=== PATIENT | female | born 1945 | race Caucasian/White ===

== ENCOUNTER 2022-08-19 07:43 | Inpatient (IN) | payer OTHER ==
[~2022-08-19] VITALS: Ht 170.2 cm; Wt 108.0 kg
[2022-08-19] MEDS ORDERED: NACL 0.9% 1,000 ML IV ONE (08:15)
--- NOTE | 2022-08-19 08:15 | NUR ---
This is a 76-year-old female with history of multiple medical problems including hypertension, CHF, atrial fibrillation, COPD brought in by paramedics from her private home who called 911 after she states she became weak and laid herself on the floor while ambulating to the bathroom after waking up this morning prior to arrival. The patient reports that she has been ill with flulike illness for the past several days characterized by a slight cough, nasal congestion, sore throat, malaise, nonbloody diarrhea without abdominal pain chest pain or shortness of breath. There has been no fever/chills or night sweats. When paramedics arrived, patient was found lethargic but awake and answering questions appropriately. When the patient was assisted to her feet patient became pale, hypotensive, tachycardic then lost consciousness for less than 1 minute with no report of seizure or focal deficit. Blood glucose was 124
--- NOTE | 2022-08-19 08:20 | NUR ---
PETER Self at bedside examining patient.
[2022-08-19 08:34] LABS: BASOPHILS % (AUTO) 0.3 % (0.0-2.0); HEMATOCRIT 41.8 % (36-48); HEMOGLOBIN 13.8 g/dL (12.0-16.0); LYMPHOCYTES # (AUTO) 0.8 K/uL (1.0-5.5); LYMPHOCYTES % (AUTO) 11.7 % (20.5-51.5); MEAN CORPUSCULAR HEMOGLOBIN 30 pg (27-31); MEAN CORPUSCULAR HGB CONC 33 % (32-36); MEAN CORPUSCULAR VOLUME 90 fL (79.0-98.0); MONOCYTES # (AUTO) 0.7 K/uL (0.0-1.0); MONOCYTES % (AUTO) 10.2 % (1.7-9.3); NEUTROPHILS # (AUTO) 5.4 K/uL (1.8-7.7); NEUTROPHILS % (AUTO) 77.8 % (40.0-70.0); PLATELET COUNT (AUTO) 306 K/uL (130-430); RED BLOOD CELL COUNT(AUTO) 4.64 MIL/uL (4.2-6.2); RED CELL DISTRIBUTION WIDTH 14.6 % (9.0-15.0)
--- NOTE | 2022-08-19 08:40 | NUR ---
PT TO RADIOLOGY VIA [facility].
[2022-08-19 08:50] LABS: INR 1.1 (0.8-1.2); PROTHROMBIN TIME 11.3 SECS (9.5-12.5)
--- NOTE | 2022-08-19 08:50 | NUR ---
Medicated per MD orders. IVF infusing with no s/s of infiltration at this time. Will cont to monitor
--- NOTE | 2022-08-19 08:53 | NUR ---
EKG COMPLETE BY EMT STRIP GIVEN TO MD GARCIAS.
[2022-08-19 08:56] LABS: ANION GAP 9 (5-15); CHLORIDE 101 mmol/L (98-107); CREATININE 1.16 mg/dL (0.55-1.30); GLUCOSE 152 mg/dL (70-99); UREA NITROGEN, BLOOD 11 mg/dL (8-21)
[2022-08-19 09:04] LABS: ALANINE AMINOTRANSFERASE 14 U/L (12-78); ALBUMIN 3.4 g/dL (3.4-4.8); ASPARTATE AMINOTRANSFERASE 22 U/L (10-37); TOTAL BILIRUBIN 0.6 mg/dL (0.0-1.0)
--- NOTE | 2022-08-19 09:06 | NUR ---
SPECIMEN COLLECTED FROM BILATERAL NARES SENT TO LAB BY PATY HERNANDEZ FOR ANALYSIS
[2022-08-19 09:11] LABS: ACETAMINOPHEN < 1 ug/mL (1-30); ALCOHOL, BLOOD < 3 mg/dL (<10)
--- NOTE | 2022-08-19 09:12 | NUR ---
Critical lab value call ronnie Guardado, lab Potassium 2.6 made aware
[2022-08-19] MEDS ORDERED: KCL 20 mEq in NS 1000 mL 1,000 ML IV ONE (09:45)
[2022-08-19] MEDS ORDERED: POTASSIUM CHLORIDE 20 MEQ/PKT PACKET PO ONE (09:45)
--- NOTE | 2022-08-19 11:49 | NUR ---
NASAL SPECIMEN COLLECTED VIA BILATERAL NARES, URINE COLLECTED SENT TO LAB.
--- NOTE | 2022-08-19 11:56 | NUR ---
Admit bed requested Patient will be admitted to care of . Admitted to TELE unit. Diagnosis GASTROENTERITIS Inpatient (Yes or No) Y Observation (Yes or No) N Orientation concerns or request close to nursing station (Yes or No) N Covid Status NEG On vent or bipap N Isolation requirements N Needs a sitter N From Home (Yes or if No enter name of facility) HOME Requires Dialysis (Yes or No) N Med Rec Completed (Yes of No) Y
--- NOTE | 2022-08-19 11:58 | NUR ---
Juancho hui in ED - 08/19/22 at 1900 by SDNURRAFAEL PT NOTIFIED NPO IN PREPARATION FOR SURGERY WITH MD JUAREZ AFTER SCHEDULE COMPLETION OF THE DAY.
[2022-08-19] MEDS ORDERED: DOCUSATE SODIUM 100 MG CAPSULE PO PRN (12:00)
[2022-08-19] MEDS ORDERED: LORazepam 2 MG/ML VIAL IVP PRN (12:00)
[2022-08-19] MEDS ORDERED: ONDANSETRON HCL 4 MG/2 ML VIAL IVP PRN (12:00)
[2022-08-19] MEDS ORDERED: MAGNESIUM SULFATE 50 ML IV PRN (12:00)
[2022-08-19] MEDS ORDERED: MORPHINE 2 MG/ML INJ. SYRINGE IVP PRN ×2 (12:00)
[2022-08-19] MEDS ORDERED: MUPIROCIN 2% TOPICAL OINTMENT 22 GM NS PRN (12:00)
[2022-08-19] MEDS ORDERED: ACETAMINOPHEN 325 MG TABLET PO PRN (12:00)
[2022-08-19] MEDS ORDERED: DEXTROSE 50% JECT 50 ML DISP.SYRIN IVP PRN (12:15)
[2022-08-19] MEDS ORDERED: INSULIN LISPRO SLIDING SCALE 100 UNITS/ML, 3 ML VIAL (humaLOG) SUBCUT PRN (12:15)
[2022-08-19] MEDS ORDERED: ALBUTEROL MDI INHALATION 8 GM INH INH PRN (12:15)
[2022-08-19 12:26] LABS: BARBITURATE, URINE NEGATIVE (NEG <=200); BENZODIAZEPINE, URINE NEGATIVE (NEG <=150); CANNABINOID, URINE NEGATIVE (NEG <=50); COCAINE, URINE NEGATIVE (NEG <=150); METHAMPHETAMINES SCREEN,URINE NEGATIVE (NEG <=500); OPIATE, URINE NEGATIVE (NEG <=100); PHENCYCLIDINE SCREEN,URINE NEGATIVE (NEG <=25); UR TRICYCLIC ANTIDEPRESSANTS NEGATIVE (NEG <=300); URINE AMPHETAMINE NEGATIVE (NEG <=500); URINE METHADONE NEGATIVE (NEG <=200); URINE OXYCODONE SCREEN NEGATIVE (NEG <=100); URINE PROPOXYPHENE SCREEN NEGATIVE (NEG <=300)
--- NOTE | 2022-08-19 12:30 | NUR ---
COVID POSITIVE CRITICAL RESULT. CALLED IN PER DEMETRIUS IN LAB.
--- NOTE | 2022-08-19 14:21 | NUR ---
ACCUCHECK BLOODSUGAR 95
[2022-08-19] MEDS ORDERED: PANT40GR PO (19:04)
[2022-08-19] MEDS ORDERED: GABA300T25 PO (19:04)
[2022-08-19] MEDS ORDERED: BUDE3CAP11 PO (19:04)
[2022-08-19] MEDS ORDERED: MONT10TA22 PO (19:04)
[2022-08-19] MEDS ORDERED: CARV20CP7 PO (19:04)
[2022-08-19] MEDS ORDERED: RIVA20TA PO (19:04)
--- NOTE | 2022-08-19 19:27 | NUR ---
REPORT GIVEN TO DORON PALACIOS.
--- NOTE | 2022-08-19 19:40 | NUR ---
Report received from PHYLLIS Beck; assuming care of patient at this time.
--- NOTE | 2022-08-19 19:45 | NUR ---
Patient A/Ox4, VSS, resp even and unlabored. Patient lying in bed with safety precautions in place. Nad noted at this time.
--- NOTE | 2022-08-19 21:20 | NUR ---
Patient will be admitted to [facility]. Admitted to Tele unit. Will go to room 126 B. Belongings list completed. Complete and up to date summary report printed. SBAR report given to DORON Iglesias at bedside with opportunity for questions.
[2022-08-19 23:01] VITALS: BP_SYST 163
[2022-08-20] VITALS: BP_SYST 163
--- NOTE | 2022-08-20 05:17 | NUR ---
CONSULTATION PAGED/CALLED Reason for Consultation: CHF Person Who was Notified: ROMEO Consulting Physician: VIVI Job Training Specialist Specialty: CARDIO Ordering Physician: BROWN
--- NOTE | 2022-08-20 06:48 | NUR ---
Patient in bed resting, denied all pain, tolerated medication well, VSS, c/o nausea prn med given. Patient with generalized stratches (abrasion like) areas. Patient stated that they were from mosquito bites and she scratched them other james no other noted skin issues.
[2022-08-20 06:54] LABS: ANION GAP 11 (5-15); CALCIUM 7.6 mg/dL (8.4-11.0); CHLORIDE 103 mmol/L (98-107); CREATININE 0.85 mg/dL (0.55-1.30); GLUCOSE 104 mg/dL (70-99)
[2022-08-20 07:04] LABS: UREA NITROGEN, BLOOD 9 mg/dL (8-21)
[2022-08-20 07:52] LABS: BASOPHILS % (AUTO) 0.3 % (0.0-2.0); HEMOGLOBIN 12.9 g/dL (12.0-16.0); LYMPHOCYTES # (AUTO) 0.8 K/uL (1.0-5.5); LYMPHOCYTES % (AUTO) 10.6 % (20.5-51.5); MEAN CORPUSCULAR HEMOGLOBIN 31 pg (27-31); MEAN CORPUSCULAR HGB CONC 34 % (32-36); MEAN CORPUSCULAR VOLUME 90 fL (79.0-98.0); MONOCYTES # (AUTO) 0.7 K/uL (0.0-1.0); NEUTROPHILS % (AUTO) 80.1 % (40.0-70.0); PLATELET COUNT (AUTO) 275 K/uL (130-430); RED BLOOD CELL COUNT(AUTO) 4.23 MIL/uL (4.2-6.2); RED CELL DISTRIBUTION WIDTH 14.6 % (9.0-15.0); WHITE BLOOD COUNT (AUTO) 7.5 K/uL (4.8-10.8)
[2022-08-20 08:00] VITALS: BP_SYST 154
[2022-08-20] MEDS ORDERED: FUROSEMIDE 40 MG/4 ML VIAL IVP SCH (09:00)
[2022-08-20] MEDS: ASPIRIN 81 MG TAB.CHEW PO SCH (09:37)
[2022-08-20] MEDS: ASCORBIC ACID 500 MG TABLET PO SCH (09:37)
[2022-08-20] MEDS: GABAPENTIN 300 MG CAPSULE PO SCH (09:37)
[2022-08-20] MEDS: CARVEDILOL 6.25 MG TABLET (COREG) PO SCH ×2 (09:38→20:22)
[2022-08-20] MEDS: DEXAMETHASONE SOD PHOSPHATE 10 MG/ML VIAL IVP SCH (09:39)
--- NOTE | 2022-08-20 09:46 | NUR ---
CONSULTATION PAGED/CALLED Reason for Consultation: [] covid Person Who was Notified: [] JAMAR Consulting Physician: [] DR CHASE Tile Installer Specialty: [] PULMO Ordering Physician: [] DR DASILVA
[2022-08-20] MEDS ORDERED: MONTELUKAST 10 MG TABLET PO ONE (10:15)
[2022-08-20 11:26] VITALS: BP_SYST 144; BP_SYST 157
[2022-08-20] MEDS: POTASSIUM CHLORIDE 20 MEQ TAB.PRT.SR PO PRN (16:18)
[2022-08-20 17:23] VITALS: BP_SYST 170
[2022-08-20] MEDS: hydrALAZINE HCL 20 MG/ML VIAL IVP PRN (17:58)
[2022-08-20] MEDS: RIVAROXABAN 10 MG TABLET PO SCH (18:04)
--- NOTE | 2022-08-20 19:30 | NUR ---
Pt. in bed, aaox4, vss, denies pain. Isolation in place due to Covid positive. Call light in reach, start of Remdisivir.
[2022-08-20 22:12] VITALS: BP_SYST 165
[2022-08-21 00:37] VITALS: BP_SYST 152
[2022-08-21 02:02] VITALS: BP_SYST 119
[2022-08-21] MEDS: hydrALAZINE HCL 20 MG/ML VIAL IVP PRN (04:14)
[2022-08-21 04:34] VITALS: BP_SYST 166
--- NOTE | 2022-08-21 06:27 | NUR ---
Pt. needs met this shift, vss, isolation in place, no acute symptoms of Covid. Pox wnl, thierno care done prn. Resting quietly, call light in reach
[2022-08-21 06:46] LABS: BASOPHILS % (AUTO) 0.2 % (0.0-2.0); HEMATOCRIT 40.3 % (36-48); HEMOGLOBIN 13.5 g/dL (12.0-16.0); LYMPHOCYTES # (AUTO) 0.7 K/uL (1.0-5.5); LYMPHOCYTES % (AUTO) 9.6 % (20.5-51.5); MEAN CORPUSCULAR HEMOGLOBIN 30 pg (27-31); MEAN CORPUSCULAR HGB CONC 34 % (32-36); MEAN CORPUSCULAR VOLUME 89 fL (79.0-98.0); MONOCYTES # (AUTO) 0.6 K/uL (0.0-1.0); MONOCYTES % (AUTO) 8.5 % (1.7-9.3); NEUTROPHILS # (AUTO) 6.1 K/uL (1.8-7.7); NEUTROPHILS % (AUTO) 81.7 % (40.0-70.0); PLATELET COUNT (AUTO) 341 K/uL (130-430); RED BLOOD CELL COUNT(AUTO) 4.55 MIL/uL (4.2-6.2); RED CELL DISTRIBUTION WIDTH 14.6 % (9.0-15.0); WHITE BLOOD COUNT (AUTO) 7.5 K/uL (4.8-10.8)
[2022-08-21 07:02] LABS: ALANINE AMINOTRANSFERASE 16 U/L (12-78); ALBUMIN 3.2 g/dL (3.4-4.8); ANION GAP 12 (5-15); ASPARTATE AMINOTRANSFERASE 26 U/L (10-37); CALCIUM 8.5 mg/dL (8.4-11.0); CHLORIDE 103 mmol/L (98-107); CREATININE 0.87 mg/dL (0.55-1.30); GLUCOSE 119 mg/dL (70-99); TOTAL BILIRUBIN 0.6 mg/dL (0.0-1.0); UREA NITROGEN, BLOOD 10 mg/dL (8-21)
--- NOTE | 2022-08-21 07:15 | NUR ---
opening note Received SBAR from night RN. Patient in bed, respirations even, non labored,bed in low and locked position, call light within keisha
[2022-08-21 08:00] VITALS: BP_SYST 137
[2022-08-21] MEDS: GABAPENTIN 300 MG CAPSULE PO SCH ×2 (08:27→20:28)
[2022-08-21] MEDS: ASCORBIC ACID 500 MG TABLET PO SCH (08:27)
[2022-08-21] MEDS: ASPIRIN 81 MG TAB.CHEW PO SCH (08:27)
[2022-08-21] MEDS: MONTELUKAST 10 MG TABLET PO SCH (08:27)
[2022-08-21] MEDS: POTASSIUM CHLORIDE 20 MEQ TAB.PRT.SR PO PRN (08:29)
[2022-08-21] MEDS: CARVEDILOL 6.25 MG TABLET (COREG) PO SCH (08:30)
[2022-08-21] MEDS: DEXAMETHASONE SOD PHOSPHATE 10 MG/ML VIAL IVP SCH (08:31)
--- NOTE | 2022-08-21 11:15 | NUR ---
nurse note patient incontinent of bladder. provided thierno care. changed linens. repositioned patient. patient denies any pain or discomfort
[2022-08-21 13:44] VITALS: BP_SYST 160
[2022-08-21] MEDS ORDERED: CARV25TA55 PO (14:03)
[2022-08-21] MEDS ORDERED: NEU300 PO (14:03)
[2022-08-21] MEDS ORDERED: GABAPENTIN 300 MG CAPSULE PO SCH (14:04)
--- NOTE | 2022-08-21 14:50 | NUR ---
AMBULATION ASSISTED PATIENT WITH AMBULATION WITH WALKER TO BATHROOM. PATIENT VOIDED, RETURNED TO BED. EDUCATED PATIENT TO USE THE CALL LIGHT WHEN SHE NEEDS HELP TO THE BATHROOM, ANSWERED ALL QUESTIONS, PATIENT VERBALIZED UNDERSTANDING, WAS ABLE TO CORRECTLY USE CALL LIGHT.
[2022-08-21] MEDS: RIVAROXABAN 10 MG TABLET PO SCH (17:04)
--- NOTE | 2022-08-21 19:10 | NUR ---
closing note provided sbar to night RN. Patient is in bed, respirations even, non labored, bed in low and locked position call light within reach, iv is saline locked. patient is on room air. Denies any pain or discomfort
[2022-08-21 20:00] VITALS: BP_SYST 167
[2022-08-21] MEDS: BACLOFEN 10 MG TABLET PO SCH (20:28)
[2022-08-21] MEDS: CARVEDILOL 25 MG TABLET (COREG) PO SCH (20:48)
[2022-08-22] VITALS: BP_SYST 143
--- NOTE | 2022-08-22 07:10 | NUR ---
OPENING NOTE RECEIVED SBAR FROM NIGHT RN. PATIENT IN BED, RESPIRATIONS EVEN, NON LABORED. BED IN LOW AND LOCKED POSITION, CALL LIGHT WITHIN REACH Addendum: 08/22/22 at 1522 by Telma Bowen RN CORRECT TIME SHOULD BE 0735
[2022-08-22 07:36] LABS: BASOPHILS % (AUTO) 0.1 % (0.0-2.0); HEMATOCRIT 41.8 % (36-48); HEMOGLOBIN 14.1 g/dL (12.0-16.0); LYMPHOCYTES # (AUTO) 0.9 K/uL (1.0-5.5); LYMPHOCYTES % (AUTO) 9.5 % (20.5-51.5); MEAN CORPUSCULAR HEMOGLOBIN 30 pg (27-31); MEAN CORPUSCULAR HGB CONC 34 % (32-36); MEAN CORPUSCULAR VOLUME 89 fL (79.0-98.0); MONOCYTES # (AUTO) 0.8 K/uL (0.0-1.0); MONOCYTES % (AUTO) 8.8 % (1.7-9.3); NEUTROPHILS # (AUTO) 7.3 K/uL (1.8-7.7); NEUTROPHILS % (AUTO) 81.6 % (40.0-70.0); PLATELET COUNT (AUTO) 358 K/uL (130-430); RED CELL DISTRIBUTION WIDTH 14.8 % (9.0-15.0)
[2022-08-22 07:42] LABS: ALANINE AMINOTRANSFERASE 16 U/L (12-78); ALBUMIN 3.3 g/dL (3.4-4.8); ANION GAP 11 (5-15); ASPARTATE AMINOTRANSFERASE 28 U/L (10-37); CALCIUM 9.3 mg/dL (8.4-11.0); CHLORIDE 102 mmol/L (98-107); CREATININE 0.73 mg/dL (0.55-1.30); GLUCOSE 110 mg/dL (70-99); TOTAL BILIRUBIN 0.6 mg/dL (0.0-1.0); UREA NITROGEN, BLOOD 17 mg/dL (8-21)
[2022-08-22 08:00] VITALS: BP_SYST 146
[2022-08-22] MEDS: DEXAMETHASONE SOD PHOSPHATE 10 MG/ML VIAL IVP SCH (09:05)
[2022-08-22] MEDS: ASPIRIN 81 MG TAB.CHEW PO SCH (09:06)
[2022-08-22] MEDS: GABAPENTIN 300 MG CAPSULE PO SCH ×2 (09:06→20:55)
[2022-08-22] MEDS: CARVEDILOL 25 MG TABLET (COREG) PO SCH ×2 (09:06→20:56)
[2022-08-22] MEDS: ASCORBIC ACID 500 MG TABLET PO SCH (09:06)
[2022-08-22] MEDS: MONTELUKAST 10 MG TABLET PO SCH (09:07)
[2022-08-22 12:15] VITALS: BP_SYST 129
--- NOTE | 2022-08-22 13:00 | NUR ---
DISCHARGE ADVISED PATIENT THAT SHE IS TO BE DISCHARGED TODAY. PATIENT STATED THAT DR DASILVA TOLD HER THAT SHE WOULD BE DISCHARGED TOMORROW AND THAT SHE DOES NOT HAVE ANY TRANSPORTATION OR CLOTHING AVAILABLE TODAY. INFORMED MACHINIST LINOTYPE OF SITUATION
--- NOTE | 2022-08-22 15:18 | NUR ---
DISCHARGE OFFERED PATIENT UBER FOR RIDE HOME, PATIENT REFUSED STATED THAT HER FRIEND IS COMING IN THE MORNING TO PICK HER UP AND WILL BRING HER CLOTHES.
--- NOTE | 2022-08-22 15:50 | NUR ---
NURSE NOTE ASSISTED PATIENT WITH AMBULATION TO THE BATHROOM PATIENT VOIDED AND RETURNED TO BED. DENIES ANY PAIN OR DISCOMFORT
--- NOTE | 2022-08-22 15:53 | NUR ---
MD DR DASILVA OK TO CANCEL DISCHARGE FOR TODAY. PATIENT TO RECEIVED ONE MORE REMDESIVAIR DOSE. WILL DISCHARGE TOMORROW.
[2022-08-22 16:10] VITALS: BP_SYST 144
[2022-08-22] MEDS: RIVAROXABAN 10 MG TABLET PO SCH (17:11)
--- NOTE | 2022-08-22 19:20 | NUR ---
CLOSING NOTE PROVIDED SBAR TO NIGHT RN. PATIENT IN BED, RESPIRATIONS EVEN, NON LABORED. BED IN LOW AND LOCKED POSITION, CALL LIGHT WITHIN REACH. ENDORSED CARE TO NIGHT RN
[2022-08-22 19:40] VITALS: BP_SYST 143
--- NOTE | 2022-08-22 19:40 | NUR ---
PM ASSESSMENT; -Pt is a/ox4, resting in bed comfortably. Pt denies any chest pain,pain,sob,or any acute distress. Pt is room air with oxy [id number]%. Ambulatory with a walker and moderate assistance. Maintains Droplet contact isolation. Fall precaution in place, side rails x3, call light w/in reach. Discussed poc with pt, she verbalized understanding. She will call when needs assistance. Cont to monitor pt.
[2022-08-22] MEDS: BACLOFEN 10 MG TABLET PO SCH (20:55)
--- NOTE | 2022-08-22 21:30 | NUR ---
INCONTINENT OF URINE -Pt was incont of urine, changed gown, chux, and fitted sheet, provided perineal, barrier cream applied. Now pt is cleaned and dry. Bed alarmed, side rails x3,call light w/in reach. Cont to monitor pt.
[2022-08-22 23:48] VITALS: BP_SYST 139
--- NOTE | 2022-08-22 23:48 | NUR ---
ROUNDS; -Pt is resting in bed comfortably. Pt denies any chest pain,pain,sob,or any acute distress. Pt is room air with oxy [id number]=26%. Maintains Droplet contact isolation. VSS, Fall precaution in place, side rails x3, call light w/in reach. Cont to monitor pt.
--- NOTE | 2022-08-23 03:45 | NUR ---
INCONTINENT OF URINE -Pt was incont of urine, changed all bedding sheet, gown, chux, and fitted sheet, provided perineal, barrier cream applied. Now pt is cleaned and dry. Bed alarmed, side rails x3,call light w/in reach. Cont to monitor pt.
--- NOTE | 2022-08-23 05:31 | NUR ---
INCONTINENT OF URINE -Pt was incont of urine, changed sheet, gown, chux, and fitted sheet, provided perineal, barrier cream applied. Now pt is cleaned and dry. Bed alarmed, side rails x3,call light w/in reach. Cont to monitor pt.
--- NOTE | 2022-08-23 06:33 | NUR ---
CLOSING NOTES; -Pt is resting in bed comfortably. Pt denies any chest pain,pain,sob,or any acute distress. Pt's condition stable. Maintains Droplet contact isolation. Fall precaution in place, side rails x3, call light w/in reach. Will endorse to next nurse to cont care.
[2022-08-23 07:44] VITALS: BP_SYST 137
[2022-08-23] MEDS: GABAPENTIN 300 MG CAPSULE PO SCH (08:21)
[2022-08-23] MEDS: MONTELUKAST 10 MG TABLET PO SCH (08:21)
[2022-08-23] MEDS: ASCORBIC ACID 500 MG TABLET PO SCH (08:21)
[2022-08-23] MEDS: ASPIRIN 81 MG TAB.CHEW PO SCH (08:21)
[2022-08-23] MEDS: DEXAMETHASONE SOD PHOSPHATE 10 MG/ML VIAL IVP SCH (08:21)
[2022-08-23] MEDS: CARVEDILOL 25 MG TABLET (COREG) PO SCH (08:22)
--- NOTE | 2022-08-23 10:03 | NUR ---
SPOKE WITH DR GLEZ RE DC, TOLD HIM THAT PT CAN DC HOME PER DR CHASE AND DR TRINIDAD. SAID SHE WILL COME AND SEE PT FOR DC ORDER.
[2022-08-23 12:37] VITALS: BP_SYST 118
--- NOTE | 2022-08-23 14:03 | NUR ---
D/C Patient Patient given medication reconciliation form and D/C instructions. Exit Care provided. Patient verbalized understanding. MD discussed with patient the results and treatment provided. Ambulatory with use of cane , steady gait for discharge to home. Patient in stable condition, ID band removed. IV catheter removed, intact and dressing applied, no active bleeding. Rx of given. Patient educated on pain management. All belongings sent with patient.
== END 2022-08-23 13:30 | disposition home or self-care (01) | DRG 177 ==
LOC: SED 07:43 → STU 11:56
PROVIDERS: ADMIT Family Medicine; ATTEND Family Medicine
PROC: XW033E5 Introduction of Remdesivir Anti-infective into Peripheral Vein, Percutaneous Approach, New Technology Group 5 (ICD-10-PCS; principal; 2022-08-21)
DX: U07.1 COVID-19 (principal); J12.82 Pneumonia due to coronavirus disease 2019; J44.0 Chronic obstructive pulmonary disease with (acute) lower respiratory infection; I34.1 Nonrheumatic mitral (valve) prolapse; E83.51 Hypocalcemia; E87.6 Hypokalemia; M79.7 Fibromyalgia; E86.0 Dehydration; A08.4 Viral intestinal infection, unspecified; I48.0 Paroxysmal atrial fibrillation; I44.7 Left bundle-branch block, unspecified; Z79.899 Other long term (current) drug therapy; Z79.01 Long term (current) use of anticoagulants; Z87.891 Personal history of nicotine dependence; Z90.710 Acquired absence of both cervix and uterus; Z91.041 Radiographic dye allergy status; I11.0 Hypertensive heart disease with heart failure
CPT/HCPCS: 36415; 70450-TC; 71045; 76376; 80048; 80053; 80307; 83605; 83735; 83880; 84484; 85025; 85610-TC; 85730-TC; 87040; 93005; 93306; 96360; 96361; 97110-GP; 97116-GP; 97530-GP; 99285; G0378; G0480; G0481; G0482; J0360; J1100; J1956; J2405; J3475; J3480; J7050